=== PATIENT | female | born 1985 | race Caucasian/White ===

== ENCOUNTER 2017-05-28 21:48 | Emergency (ER) | payer BC ==
[2017-05-28] MEDS ORDERED: HYDROmorphone 1 MG/ML Syringe IM ONE (22:22)
[2017-05-28] MEDS ORDERED: Ketorolac 60 MG/2 ML SDV IM ONE (22:22)
--- NOTE | 2017-05-28 22:30 | EDM.PDOC ---
ED HPI GENERAL MEDICAL PROBLEM - General Chief Complaint: Neck Problem Stated Complaint: PT FELL OFF SCOOTER AND HURT HEAD Time Seen by Provider: 05/28/17 22:07 Source of Information: Reports: Patient, Family, Significant Other History Limitations: Reports: No Limitations - History of Present Illness INITIAL COMMENTS - FREE TEXT/NARRATIVE: HISTORY AND PHYSICAL: History of present illness: [32-year-old female history of morbid obesity, now presents emergency room complaining of headache and neck pain after falling off a child scooter. Patient was riding a child scooter prior to arrival when she fell off instructed the back of her head. She did not have loss of consciousness but states she was dazed. She has some swelling on the back of her head and states it's still painful. Her neck is sore as well. She denies spinal pain no chest wall pain no hip or extremity pain of any kind. Patient is otherwise asymptomatic .she has no bone or bleeding problems and takes no anticoagulants Review of systems: As per history of present illness and below otherwise all systems reviewed and negative. Past medical history: As per history of present illness and as reviewed below otherwise noncontributory. Surgical history: As per history of present illness and as reviewed below otherwise noncontributory. Social history: No reported history of drug or alcohol abuse. Family history: As per history of present illness and as reviewed below otherwise noncontributory. Physical exam: Mildly uncomfortable appearing 32-year-old female no acute distress alert communicative and cooperative appropriate mental status. Nonfocal neurologic exam. Soft tissue swelling occipital scalp with nontender C- spine but bilateral paraspinal soft tissue tenderness without spasm. C collar placed. No spinal tenderness no chest wall tenderness clear lungs regular rate and rhythm no tachycardia benign abdomen nontender and stable pelvis and extremities. HEENT: Mild soft tissue swelling soft tissue tenderness occipital scalp with no bony tenderness crepitus or step-off normocephalic, pupils reactive, negative for conjunctival pallor or scleral icterus, mucous membranes moist, throat clear , neck supple, nontender, trachea midline. Lungs: Clear to auscultation, breath sounds equal bilaterally, chest nontender. Heart: S1S2, regular, negative for clicks, rubs, or JVD. Abdomen: Soft, nondistended, nontender. Negative for masses or hepatosplenomegaly. Negative for costovertebral tenderness. Pelvis: Stable nontender. Genitourinary: Deferred. Rectal: Deferred. Extremities: Atraumatic, negative for cords or calf pain. Neurovascular unremarkable. Neuro: Awake, alert, oriented. Cranial nerves II through XII unremarkable. Cerebellum unremarkable. Motor and sensory unremarkable throughout. Exam nonfocal. Diagnostics: [CT head and C-spine] Therapeutics: [Toradol and Dilaudid given IM ice pack applied c-collar in place] Impression: Closed head injury Mild concussion Cervical strain ] Plan: [Signs and symptoms consistent with mild cervical strain in the setting of closed head injury clinical evidence of mild concussion with persistent headaches. Nonfocal neurologic exam. CT head and C-spine pending. Analgesia and anti-inflammatory medications administered IM. Ice pack in place. If workup is unremarkable patient agrees with outpatient follow-up with PCP. She is aware to rest and use ice take Tylenol and NSAIDs and do no mentally strenuous activity until her symptoms have resolved] Addie follow-up with PCP in one to 2 days and return immediately for new severe or worsening symptoms Definitive disposition and diagnosis as appropriate pending reevaluation and review of above. head & neck area Pain Score (Numeric/FACES): 6 - Related Data Allergies Allergy/AdvReac Type Severity Reaction Status Date / Time Penicillins Allergy Rash Verified 05/28/17 22:09 Home Meds: Home Meds . [No Known Home Meds] 05/28/17 [History] ED ROS GENERAL - Review of Systems Review Of Systems: See Below (history of present illness) ED EXAM, GENERAL - Physical Exam Exam: See Below (history of present illness) Course - Vital Signs Last Recorded V/S: Last Vital Signs Temp 36.8 C 05/29/17 01:17 Pulse 92 05/29/17 01:17 Resp 18 05/29/17 01:17 BP 124/91 H 05/29/17 01:17 Pulse Ox 98 05/29/17 01:17 - Orders/Labs/Meds Orders: Active Orders 24 hr Category Date Time Status Cervical Spine wo Cont [CT] Stat Exams 05/28/17 22:22 Taken Head wo Cont [CT] Stat Exams 05/28/17 22:22 Ordered Meds: Medications Discontinued Medications Generic Name Dose Route Start Last Admin Trade Name Freq PRN Reason Stop Dose Admin Hydromorphone HCl 1 mg 05/28/17 22:22 05/28/17 22:56 Dilaudid IM 05/28/17 22:23 1 mg ONETIME ONE Administration Ketorolac Tromethamine 60 mg 05/28/17 22:22 05/28/17 22:55 Toradol IM 05/28/17 22:23 60 mg ONETIME ONE Administration Departure - Departure Time of Disposition: 01:04 Disposition: Home, Self-Care 01 Condition: Good Clinical Impression: Closed head injury, Mild concussion, Cervical strain - Discharge Information Instructions: Concussion, Adult, [id number], Cervical Strain and Sprain With Rehab-SportsMed Referrals: PCP,None [Primary Care Provider] - Forms: ED Department Discharge Additional Instructions: You have suffered a closed head injury today and you're persistent headaches and symptoms suggest that you have a mild concussion. Your CAT scan of the head and neck showed no fractures and no evidence of visible injury to your brain or bleeding. Take Motrin and Tylenol as needed for pain. Use ice on your area of scalp swelling and tenderness as needed. Try to rest quietly for the next day or 2 and avoid mental strain or excessive activity until your symptoms have resolved. Follow-up with your tomorrow and return immediately for new severe or worsening symptoms - My Orders Last 24 Hours: My Active Orders 05/28/17 22:22 Cervical Spine wo Cont [CT] Stat Head wo Cont [CT] Stat - Assessment/Plan Last 24 Hours: My Active Orders 05/28/17 22:22 Cervical Spine wo Cont [CT] Stat Head wo Cont [CT] Stat
[2017-05-29 01:19] VITALS: BP 124/91
--- NOTE | 2017-05-29 19:13 | CT ---
EXAM DATE: 05/28/17 PATIENT'S AGE: 32 Patient: EMMANUEL HARO Facility: [place], [place] Site . Site : 1985 Study: CT Head [id number]/3/2017 11:54:21 PM Ordering Physician: Vitaly Bradshaw Final Report: INDICATION: fall TECHNIQUE: CT Head without contrast. COMPARISON: None. FINDINGS: There is no sign of intracranial hemorrhage or mass effect. Ventricles and sulci are symmetric and midline. The oneill-white differentiation is preserved. No abnormal intra-axial or extra-axial fluid collection. No acute disease of the visualized paranasal sinuses and mastoid air cells. No fracture evident. Left posterior scalp hematoma/laceration. IMPRESSION: No acute intracranial process. Dictated by: Deepak Olivarez MD @ 05/29/2017 00:03:13 (Electronic Signature) Report Signed by Proxy. [facility]
--- NOTE | 2017-05-29 19:14 | CT ---
EXAM DATE: 05/28/17 PATIENT'S AGE: 32 Patient: EMMANUEL HARO Facility: [place], [place] Site . Site : 1985 Study: CT Spine Cervical [id number]/3/2017 11:54:54 PM Ordering Physician: Vitaly Bradshaw Final Report: INDICATION: fall TECHNIQUE: CT cervical spine without contrast COMPARISON: None FINDINGS: Vertebral alignment: Relative straightening of the normal cervical spine lordosis which may be on the basis of positioning and/or muscle spasm. . Vertebrae: There are no fractures or suspicious bony lesions. Discs and facet joints: Disc spaces and facets are within normal limits. Extraspinal findings: Prevertebral soft tissues, visualized airway, and visualized lungs are unremarkable. IMPRESSION: Relative straightening of the normal cervical spine lordosis which may be on the basis of positioning and/or muscle spasm. No acute bony abnormality. Dictated by Deepak Olivarez MD @ 05/29/2017 12:05:02 AM Dictated by: Deepak Olivarez MD @ 05/29/2017 00:05:07 (Electronic Signature) Report Signed by Proxy. [facility]
== END 2017-05-29 01:17 | disposition home or self-care (01) ==
LOC: MW.ED 21:48
DX: S06.0X0A Concussion without loss of consciousness, initial encounter (principal); S16.1XXA Strain of muscle, fascia and tendon at neck level, initial encounter; E66.09 Other obesity due to excess calories; Z68.41 Body mass index [BMI] 40.0-44.9, adult; W05.1XXA Fall from non-moving nonmotorized scooter, initial encounter
CPT/HCPCS: 70450; 72125; 96372; 99283; J1170; J1885; 99284

== ENCOUNTER 2020-09-30 06:05 | Emergency (ER) | payer BC ==
[2020-09-30] MEDS ORDERED: Tetracaine HCl/PF 0.5% 4 ML Bottle ONE (06:07)
[2020-09-30] MEDS ORDERED: Tetracaine HCl/PF 0.5% 4 ML Bottle EYEBOTH STA (06:10)
[2020-09-30 06:15] VITALS: BP 157/108; PULSE 84
--- NOTE | 2020-09-30 06:40 | EDM.PDOC ---
<Johnie Yoon - Last Filed: 09/30/20 06:54> ED HPI GENERAL MEDICAL PROBLEM - General Chief Complaint: Eye Problems Stated Complaint: RT EYE HURTS Time Seen by Provider: 09/30/20 06:11 Source of Information: Reports: Patient History Limitations: Reports: No Limitations - History of Present Illness INITIAL COMMENTS - FREE TEXT/NARRATIVE: Patient is a 35-year-old female who presents today for bilateral eye pain. Patient states that she use her eye contact solution which is a disinfectant that she got mixed up for her normal eyedrops. Patient states since about 11:00 last night she has had this burning sensation in her eyes. She tried to rinse her eyes water in the sink without much success. Patient states it hurts when she does open her eyes as a burning sensation but notes there is no change in her vision when she is able to keep her eye open. Patient denies any other complaints. She is unaware of the brand of the no rub eye solution as well. bilateral eye Pain Score (Numeric/FACES): 5 - Related Data Allergies Allergy/AdvReac Type Severity Reaction Status Date / Time Penicillins Allergy Rash Verified 05/28/17 22:09 Home Meds: Home Meds . [No Known Home Meds] 05/28/17 [History] Past Medical History HEENT History: Reports: None Cardiovascular History: Reports: Arrhythmia Respiratory History: Reports: None Gastrointestinal History: Reports: None Genitourinary History: Reports: None [employer] History: Reports: Musculoskeletal History: Reports: None Neurological History: Reports: None Psychiatric History: Reports: Depression Endocrine/Metabolic History: Reports: None Hematologic History: Reports: None Immunologic History: Reports: None Oncologic (Cancer) History: Reports: None Dermatologic History: Reports: None - Infectious Disease History Infectious Disease History: Reports: Chicken Pox, Shingles - Past Surgical History GI Surgical History: Reports: Cholecystectomy Social & Family History - Family History Family Medical History: No Pertinent Family History - Tobacco Use Tobacco Use Status *Q: Never Tobacco User - Caffeine Use Caffeine Use: Reports: Coffee - Recreational Drug Use Recreational Drug Use: No ED ROS GENERAL - Review of Systems Review Of Systems: See Below Constitutional: Reports: No Symptoms HEENT: Reports: Eye Pain Respiratory: Reports: No Symptoms Cardiovascular: Reports: No Symptoms Endocrine: Reports: No Symptoms GI/Abdominal: Reports: No Symptoms : Reports: No Symptoms Musculoskeletal: Reports: No Symptoms Skin: Reports: No Symptoms Neurological: Reports: No Symptoms Psychiatric: Reports: No Symptoms Hematologic/Lymphatic: Reports: No Symptoms Immunologic: Reports: No Symptoms ED EXAM GENERAL W FULL EYE - Physical Exam Exam: See Below Exam Limited By: No Limitations General Appearance: Alert, No Apparent Distress Eye Exam: Bilateral Eye: Conjunctival Injection, EOMI, PERRL Eyelids: Bilateral: Normal Appearance Cornea Exam: Bilateral: Normal Appearance Extraocular Movements: Bilateral: Intact Pupils: Normal Accommodation Respiratory/Chest: No Respiratory Distress Neurological: Alert, Oriented, CN II-XII Intact, Normal Cognition, Normal Gait Course - Re-Assessments/Exams Free Text/Narrative Re-Assessment/Exam: 09/30/20 06:55 he states that the solution he uses call clear care plus hydraglyde. 09/30/20 06:56 To be signed out to oncoming attending. Departure - Departure Disposition: Home, Self-Care 01 Clinical Impression: Conjunctivitis - Discharge Information Instructions: Eye Foreign Body, [id number] Referrals: [facility] [Provider Group] [facility] [Outside] Zachery Schneider MD [Ordering Only Provider] - Forms: ED Department Discharge Additional Instructions: The following information is given to patients seen in the emergency department who are being discharged to home. This information is to outline your options for follow-up care. We provide all patients seen in our emergency department with a follow-up referral. The need for follow-up, as well as the timing and circumstances, are variable de pending upon the specifics of your emergency department visit. If you don't have a primary care physician on staff, we will provide you with a referral. We always advise you to contact your personal physician following an emergency department visit to inform them of the circumstance of the visit and for follow-up with them and/or the need for any referrals to a consulting specialist. The emergency department will also refer you to a specialist when appropriate. This referral assures that you have the opportunity for follow-up care with a specialist. All of these measure are taken in an effort to provide you with optimal care, which includes your follow-up. Under all circumstances we always encourage you to contact your private physician who remains a resource for coordinating your care. When calling for follow-up care, please make the office aware that this follow-up is from your recent emergency room visit. If for any reason you are refused follow-up, please contact the [facility] Department at and asked to speak to the emergency department charge nurse. [facility] [address] [place] [address] [facility] [address] [place] [id number] Please follow-up with Dr. Schneider today if your eye pain continues. He will be in his office at 11:00 today. Please call him prior to showing up. Otherwise follow-up with your regular eye doctor. Sepsis Event Note (ED) - Evaluation Sepsis Screening Result: No Definite Risk - Assessment/Plan Plan: Is a 35-year-old female who presents today for bilateral eye pain. Patient use a type of eye disinfecting on a contact that she normally does not use since that time she has had this burning in her eyes. On exam was lamp did not see any corneal abrasions or ulcers. Will flush both eyes with saline and reassess. <Seven Schilling - Last Filed: 09/30/20 09:20> Course - Vital Signs Text/Narrative:: 07 the patient had improved quite a bit. The electrician aircraft is in the off ice today but it is not her electrician aircraft. She is referred in case she does not continue to improve. Otherwise she will follow up with her electrician aircraft next week. Last Recorded V/S: Last Vital Signs Temp 35.9 C L 09/30/20 06:09 Pulse 84 09/30/20 06:09 Resp 18 09/30/20 06:09 BP 157/108 H 09/30/20 06:09 Pulse Ox 97 09/30/20 06:09 - Orders/Labs/Meds Meds: Medications Discontinued Medications Generic Name Dose Route Start Last Admin Trade Name Freq PRN Reason Stop Dose Admin Tetracaine HCl Confirm 09/30/20 06:07 09/30/20 06:15 Tetracaine 0.5% Steri-Unit Kandy Administered 09/30/20 06:08 Not Given Dose 4 ml .ROUTE .STK-MED ONE Tetracaine HCl 1 ml 09/30/20 06:10 09/30/20 06:14 Tetracaine 0.5% Steri-Unit Kandy EYEBOTH 09/30/20 06:11 1 drop NOW STA Administration Departure - Departure Time of Disposition: 07:34 Condition: Good Sepsis Event Note (ED) - Focused Exam Vital Signs: Vital Signs Temp Pulse Resp BP Pulse Ox 09/30/20 06:09 35.9 C L 84 18 157/108 H 97
== END 2020-09-30 07:34 | disposition home or self-care (01) ==
LOC: MW.ED 06:05
DX: H10.9 Unspecified conjunctivitis (principal); Z88.0 Allergy status to penicillin
CPT/HCPCS: 99282; 99283